=== PATIENT | male | born 1955 | race Caucasian/White ===

== ENCOUNTER 2021-12-06 13:31 | Inpatient (IN) | payer OTHER ==
[~2021-12-06] VITALS: Ht 170.2 cm; Wt 86.8 kg
[2021-12-06 13:36] VITALS: BP_SYST 103
[2021-12-06] MEDS ORDERED: PIPERACILLIN/TAZO 3.38 GM in D5W 50 ML IV ONE (14:45)
[2021-12-06] MEDS ORDERED: PIPERACILLIN/TAZOBACTAM 3.375 GM/VIAL (ZOSYN) IV ONE (14:58)
[2021-12-06 15:19] LABS: BILIRUBIN,URINE NEGATIVE (NEGATIVE); BLOOD, URINE 1+ (NEGATIVE); COLOR,URINE YELLOW (YELLOW); GLUCOSE,URINE NEGATIVE (NEGATIVE); KETONES,URINE NEGATIVE (NEGATIVE); LEUKOCYTE ESTERASE ,URINE 1+ (NEGATIVE); NITRITE, URINE NEGATIVE (NEGATIVE); PROTEIN URINE 1+ (NEGATIVE)
[2021-12-06 15:25] LABS: CLARITY/URINE HAZY (CLEAR)
[2021-12-06 15:26] LABS: BACTERIA,URINE FEW /HPF (None Seen); RBC,URINE 0-3 /HPF (0-3)
[2021-12-06 15:27] LABS: MUCUS,URINE None Seen /LPF (None Seen); YEAST,URINE Few /HPF (None Seen)
[2021-12-06 15:28] LABS: BASOPHILS # (AUTO) 0.1 K/uL (0.0-0.2); BASOPHILS % (AUTO) 0.5 % (0.0-2.0); EOSINOPHILS # (AUTO) 0.1 K/uL (0.0-0.4); EOSINOPHILS % (AUTO) 0.8 % (0.0-4.0); HEMATOCRIT 37.5 % (36-54); LYMPHOCYTES # (AUTO) 1.9 K/uL (1.0-5.5); LYMPHOCYTES % (AUTO) 12.7 % (20.5-51.5); MEAN CORPUSCULAR VOLUME 89 fL (79.0-98.0); MONOCYTES # (AUTO) 1.5 K/uL (0.0-1.0); MONOCYTES % (AUTO) 10.2 % (1.7-9.3); NEUTROPHILS # (AUTO) 11.1 K/uL (1.8-7.7); NEUTROPHILS % (AUTO) 75.8 % (40.0-70.0); PLATELET COUNT (AUTO) 288 K/uL (130-430); RED CELL DISTRIBUTION WIDTH 14.4 % (9.0-15.0); WHITE BLOOD COUNT (AUTO) 14.7 K/uL (4.8-10.8)
[2021-12-06 17:01] LABS: ANION GAP 6 (5-15); CALCIUM 9.2 mg/dL (8.4-11.0); CHLORIDE 99 mmol/L (98-107); CREATININE 0.91 mg/dL (0.55-1.30); GLUCOSE 108 mg/dL (70-99); POTASSIUM 3.8 mmol/L (3.5-5.1); UREA NITROGEN, BLOOD 15 mg/dL (8-21)
[2021-12-06 17:05] LABS: GFR AFRICAN AMERICAN 107 mL/min (>90)
[2021-12-06 17:09] LABS: ALANINE AMINOTRANSFERASE 46 U/L (12-78); ALBUMIN 1.8 g/dL (3.4-4.8); ASPARTATE AMINOTRANSFERASE 30 U/L (10-37); TOTAL BILIRUBIN 1.3 mg/dL (0.0-1.0)
[2021-12-06] MEDS: VANCOMYCIN HCL 1,500 MG in NS 250 ML IV SCH (17:31)
[2021-12-06] MEDS ORDERED: MAGNESIUM SULFATE 50 ML IV PRN (18:00)
[2021-12-06] MEDS ORDERED: DOCUSATE SODIUM 100 MG CAPSULE PO PRN (18:00)
[2021-12-06] MEDS ORDERED: POTASSIUM CHLORIDE 20 MEQ TAB.PRT.SR PO PRN (18:00)
[2021-12-06] MEDS ORDERED: MUPIROCIN 2% TOPICAL OINTMENT 22 GM NS PRN (18:00)
[2021-12-06] MEDS ORDERED: ONDANSETRON HCL 4 MG/2 ML VIAL IVP PRN (18:00)
[2021-12-06] MEDS ORDERED: ACETAMINOPHEN 325 MG TABLET PO PRN (18:00)
[2021-12-06] MEDS ORDERED: MORPHINE 2 MG/ML INJ. SYRINGE IVP PRN ×2 (18:00)
[2021-12-06] MEDS ORDERED: LORazepam 2 MG/ML VIAL IVP PRN (18:00)
[2021-12-06] MEDS ORDERED: APIX2.5T GT (18:29)
[2021-12-06] MEDS ORDERED: SENN8.6T19 GT (18:29)
[2021-12-06] MEDS ORDERED: COLL100 GT (18:29)
[2021-12-06] MEDS ORDERED: VITA250012 GT (18:29)
[2021-12-06] MEDS ORDERED: INSU100V7 SUBCUT (18:29)
[2021-12-06] MEDS ORDERED: LANS30CA53 GT (18:29)
[2021-12-06] MEDS ORDERED: LEVE500T9 GT (18:29)
[2021-12-06] MEDS ORDERED: POLY17PO4 GT (18:29)
[2021-12-06] MEDS ORDERED: IPRA4AER INH (18:29)
[2021-12-06] MEDS ORDERED: ACET325T53 GT (18:29)
[2021-12-06] MEDS ORDERED: IPRA3AMP9 INH (19:53)
[2021-12-06] MEDS ORDERED: LEVE500S9 GT (19:53)
[2021-12-06] MEDS ORDERED: VITD2000 GT (19:53)
[2021-12-06] MEDS ORDERED: PIPERACILLIN/TAZO 3.375/DEX-IS 50 ML IV SCH (22:00)
[2021-12-07] VITALS: BP_SYST 109
[2021-12-07] MEDS ORDERED: ZOSYN (PIPERACILLIN/TAZO) 3.375 GM in DEX-ISO (50ml) IV SCH
[2021-12-07] MEDS: ZOSYN (PIPERACILLIN/TAZO) 3.375 GM in DEX-ISO (50ml) IV SCH ×4 (01:18→20:24)
[2021-12-07 07:00] VITALS: BP_SYST 151
[2021-12-07 08:00] VITALS: BP_SYST 151
[2021-12-07 09:39] LABS: BASOPHILS # (AUTO) 0.1 K/uL (0.0-0.2); BASOPHILS % (AUTO) 0.8 % (0.0-2.0); EOSINOPHILS # (AUTO) 0.1 K/uL (0.0-0.4); EOSINOPHILS % (AUTO) 1.2 % (0.0-4.0); LYMPHOCYTES # (AUTO) 1.9 K/uL (1.0-5.5); LYMPHOCYTES % (AUTO) 16.2 % (20.5-51.5); MEAN CORPUSCULAR VOLUME 90 fL (79.0-98.0); MONOCYTES # (AUTO) 1.4 K/uL (0.0-1.0); MONOCYTES % (AUTO) 12.2 % (1.7-9.3); NEUTROPHILS # (AUTO) 8.1 K/uL (1.8-7.7); NEUTROPHILS % (AUTO) 69.6 % (40.0-70.0); PLATELET COUNT (AUTO) 295 K/uL (130-430); RED BLOOD CELL COUNT(AUTO) 4.25 MIL/uL (4.2-6.2); RED CELL DISTRIBUTION WIDTH 14.3 % (9.0-15.0); WHITE BLOOD COUNT (AUTO) 11.6 K/uL (4.8-10.8)
[2021-12-07 09:53] LABS: CALCIUM 9.2 mg/dL (8.4-11.0); CREATININE 0.85 mg/dL (0.55-1.30); POTASSIUM 3.7 mmol/L (3.5-5.1)
[2021-12-07 11:42] VITALS: BP_SYST 136
[2021-12-07] MEDS ORDERED: FUROSEMIDE 40 MG/4 ML VIAL IVP ONE (12:30)
[2021-12-07] MEDS ORDERED: INSULIN LISPRO SLIDING SCALE 100 UNITS/ML, 3 ML VIAL (humaLOG) SUBCUT PRN (14:00)
[2021-12-07] MEDS ORDERED: DEXTROSE 50% JECT 50 ML DISP.SYRIN IVP PRN (14:00)
[2021-12-07 15:23] VITALS: BP_SYST 141
[2021-12-07] MEDS: VANCOMYCIN HCL 1,500 MG in NS 250 ML IV SCH (18:20)
[2021-12-07 20:20] VITALS: BP_SYST 120
[2021-12-07] MEDS: SENNOSIDES 8.6 MG TABLET GT SCH (20:50)
[2021-12-07] MEDS: levETIRAcetam 500 MG in NS 100 ML IV SCH (20:53)
[2021-12-08 00:15] VITALS: BP_SYST 150
[2021-12-08] MEDS: ZOSYN (PIPERACILLIN/TAZO) 3.375 GM in DEX-ISO (50ml) IV SCH ×2 (01:32→06:12)
[2021-12-08 07:00] VITALS: BP_SYST 146
[2021-12-08 07:56] LABS: BASOPHILS % (AUTO) 0.5 % (0.0-2.0); EOSINOPHILS # (AUTO) 0.1 K/uL (0.0-0.4); EOSINOPHILS % (AUTO) 1.1 % (0.0-4.0); HEMATOCRIT 39.7 % (36-54); LYMPHOCYTES # (AUTO) 2.1 K/uL (1.0-5.5); LYMPHOCYTES % (AUTO) 25.4 % (20.5-51.5); MEAN CORPUSCULAR VOLUME 90 fL (79.0-98.0); MONOCYTES % (AUTO) 11.8 % (1.7-9.3); NEUTROPHILS # (AUTO) 5.1 K/uL (1.8-7.7); NEUTROPHILS % (AUTO) 61.2 % (40.0-70.0); PLATELET COUNT (AUTO) 321 K/uL (130-430); RED BLOOD CELL COUNT(AUTO) 4.42 MIL/uL (4.2-6.2); RED CELL DISTRIBUTION WIDTH 14.5 % (9.0-15.0); WHITE BLOOD COUNT (AUTO) 8.3 K/uL (4.8-10.8)
[2021-12-08 08:00] VITALS: BP_SYST 146
[2021-12-08 08:24] LABS: CALCIUM 9.6 mg/dL (8.4-11.0); CREATININE 1.17 mg/dL (0.55-1.30); POTASSIUM 3.3 mmol/L (3.5-5.1)
[2021-12-08] MEDS: POLYETHYLENE GLYCOL 3350, 17 GM/ POWD.PACK GT SCH (08:40)
[2021-12-08] MEDS: FUROSEMIDE 40 MG/4 ML VIAL IVP SCH (08:40)
[2021-12-08] MEDS: levETIRAcetam 500 MG in NS 100 ML IV SCH ×2 (11:27→20:58)
[2021-12-08 12:00] VITALS: BP_SYST 118
[2021-12-08 16:00] VITALS: BP_SYST 130
[2021-12-08] MEDS: VANCOMYCIN HCL 1,500 MG in NS 250 ML IV SCH (17:49)
[2021-12-08 20:00] VITALS: BP_SYST 110
[2021-12-08] MEDS: SENNOSIDES 8.6 MG TABLET GT SCH (20:57)
[2021-12-09] VITALS: BP_SYST 106
[2021-12-09 07:28] LABS: CALCIUM 9.2 mg/dL (8.4-11.0); CREATININE 0.99 mg/dL (0.55-1.30); POTASSIUM 3.2 mmol/L (3.5-5.1)
[2021-12-09 07:34] LABS: BASOPHILS # (AUTO) 0.1 K/uL (0.0-0.2); BASOPHILS % (AUTO) 0.8 % (0.0-2.0); EOSINOPHILS # (AUTO) 0.1 K/uL (0.0-0.4); EOSINOPHILS % (AUTO) 1.4 % (0.0-4.0); HEMATOCRIT 37.6 % (36-54); LYMPHOCYTES # (AUTO) 1.6 K/uL (1.0-5.5); LYMPHOCYTES % (AUTO) 21.6 % (20.5-51.5); MEAN CORPUSCULAR VOLUME 90 fL (79.0-98.0); MONOCYTES # (AUTO) 0.9 K/uL (0.0-1.0); MONOCYTES % (AUTO) 11.7 % (1.7-9.3); NEUTROPHILS # (AUTO) 4.9 K/uL (1.8-7.7); NEUTROPHILS % (AUTO) 64.5 % (40.0-70.0); PLATELET COUNT (AUTO) 340 K/uL (130-430); RED BLOOD CELL COUNT(AUTO) 4.19 MIL/uL (4.2-6.2); RED CELL DISTRIBUTION WIDTH 14.3 % (9.0-15.0); WHITE BLOOD COUNT (AUTO) 7.5 K/uL (4.8-10.8)
[2021-12-09] MEDS: POLYETHYLENE GLYCOL 3350, 17 GM/ POWD.PACK GT SCH (09:01)
[2021-12-09] MEDS: FUROSEMIDE 40 MG/4 ML VIAL IVP SCH (09:10)
[2021-12-09] MEDS: levETIRAcetam 500 MG in NS 100 ML IV SCH ×2 (09:12→22:20)
[2021-12-09 12:09] VITALS: BP_SYST 110
[2021-12-09 16:46] VITALS: BP_SYST 113
[2021-12-09] MEDS: VANCOMYCIN HCL 1,500 MG in NS 250 ML IV SCH (17:52)
[2021-12-09 20:00] VITALS: BP_SYST 127
[2021-12-09] MEDS: SENNOSIDES 8.6 MG TABLET GT SCH (22:20)
[2021-12-10] VITALS (7 sets, daily range): BP systolic 106–149
[2021-12-10 08:27] LABS: BASOPHILS # (AUTO) 0.1 K/uL (0.0-0.2); BASOPHILS % (AUTO) 0.9 % (0.0-2.0); EOSINOPHILS # (AUTO) 0.1 K/uL (0.0-0.4); LYMPHOCYTES # (AUTO) 1.3 K/uL (1.0-5.5); LYMPHOCYTES % (AUTO) 24.5 % (20.5-51.5); MEAN CORPUSCULAR VOLUME 91 fL (79.0-98.0); MONOCYTES # (AUTO) 0.8 K/uL (0.0-1.0); MONOCYTES % (AUTO) 14.5 % (1.7-9.3); NEUTROPHILS # (AUTO) 3.1 K/uL (1.8-7.7); NEUTROPHILS % (AUTO) 58.1 % (40.0-70.0); PLATELET COUNT (AUTO) 297 K/uL (130-430); RED BLOOD CELL COUNT(AUTO) 4.06 MIL/uL (4.2-6.2); RED CELL DISTRIBUTION WIDTH 14.1 % (9.0-15.0); WHITE BLOOD COUNT (AUTO) 5.4 K/uL (4.8-10.8)
[2021-12-10] MEDS: FUROSEMIDE 40 MG/4 ML VIAL IVP SCH (08:32)
[2021-12-10] MEDS: levETIRAcetam 500 MG in NS 100 ML IV SCH ×2 (08:33→20:23)
[2021-12-10] MEDS: POLYETHYLENE GLYCOL 3350, 17 GM/ POWD.PACK GT SCH (08:33)
[2021-12-10 08:38] LABS: CALCIUM 9.2 mg/dL (8.4-11.0); CREATININE 1.03 mg/dL (0.55-1.30); POTASSIUM 3.3 mmol/L (3.5-5.1)
[2021-12-10] MEDS ORDERED: LEVO-62 PO (10:31)
[2021-12-10] MEDS: VANCOMYCIN HCL 1,500 MG in NS 250 ML IV SCH (17:18)
[2021-12-10] MEDS: SENNOSIDES 8.6 MG TABLET GT SCH (20:22)
[2021-12-11] VITALS: BP_SYST 135
[2021-12-11 08:00] VITALS: BP_SYST 124
[2021-12-11] MEDS: FUROSEMIDE 40 MG/4 ML VIAL IVP SCH (08:46)
[2021-12-11] MEDS: POLYETHYLENE GLYCOL 3350, 17 GM/ POWD.PACK GT SCH (08:47)
[2021-12-11 09:22] LABS: CALCIUM 9.5 mg/dL (8.4-11.0); CREATININE 0.92 mg/dL (0.55-1.30); POTASSIUM 3.2 mmol/L (3.5-5.1)
[2021-12-11 11:24] VITALS: BP_SYST 119
[2021-12-11] MEDS: levETIRAcetam 500 MG in NS 100 ML IV SCH ×2 (11:26→21:45)
[2021-12-11 12:54] LABS: BASOPHILS # (AUTO) 0.1 K/uL (0.0-0.2); BASOPHILS % (AUTO) 1.2 % (0.0-2.0); EOSINOPHILS # (AUTO) 0.2 K/uL (0.0-0.4); EOSINOPHILS % (AUTO) 3.7 % (0.0-4.0); HEMATOCRIT 38.6 % (36-54); LYMPHOCYTES # (AUTO) 1.3 K/uL (1.0-5.5); LYMPHOCYTES % (AUTO) 23.6 % (20.5-51.5); MONOCYTES # (AUTO) 0.6 K/uL (0.0-1.0); MONOCYTES % (AUTO) 10.3 % (1.7-9.3); NEUTROPHILS # (AUTO) 3.5 K/uL (1.8-7.7); NEUTROPHILS % (AUTO) 61.2 % (40.0-70.0); PLATELET COUNT (AUTO) 269 K/uL (130-430); RED BLOOD CELL COUNT(AUTO) 4.32 MIL/uL (4.2-6.2); RED CELL DISTRIBUTION WIDTH 14.3 % (9.0-15.0); WHITE BLOOD COUNT (AUTO) 5.7 K/uL (4.8-10.8)
[2021-12-11 13:12] LABS: MEAN CORPUSCULAR VOLUME 89 fL (79.0-98.0)
[2021-12-11 15:34] VITALS: BP_SYST 115
[2021-12-11] MEDS: VANCOMYCIN HCL 1,500 MG in NS 250 ML IV SCH (17:54)
[2021-12-11 20:00] VITALS: BP_SYST 113
[2021-12-11] MEDS: SENNOSIDES 8.6 MG TABLET GT SCH (21:45)
[2021-12-12] VITALS: BP_SYST 135; BP_SYST 141
[2021-12-12 08:00] VITALS: BP_SYST 133
[2021-12-12] MEDS: levETIRAcetam 500 MG in NS 100 ML IV SCH ×2 (09:00→21:00)
[2021-12-12] MEDS: FUROSEMIDE 40 MG/4 ML VIAL IVP SCH (09:00)
[2021-12-12] MEDS: POLYETHYLENE GLYCOL 3350, 17 GM/ POWD.PACK GT SCH (09:00)
[2021-12-12 11:38] VITALS: BP_SYST 116
[2021-12-12 15:35] VITALS: BP_SYST 120
[2021-12-12] MEDS: VANCOMYCIN HCL 1,500 MG in NS 250 ML IV SCH (17:44)
[2021-12-12 21:00] VITALS: BP_SYST 131
[2021-12-12] MEDS: SENNOSIDES 8.6 MG TABLET GT SCH (23:20)
[2021-12-13 01:00] VITALS: BP_SYST 129
[2021-12-13 08:00] VITALS: BP_SYST 136
[2021-12-13] MEDS: POLYETHYLENE GLYCOL 3350, 17 GM/ POWD.PACK GT SCH (09:00)
[2021-12-13] MEDS: FUROSEMIDE 40 MG/4 ML VIAL IVP SCH (09:00)
[2021-12-13] MEDS: levETIRAcetam 500 MG in NS 100 ML IV SCH (09:00)
[2021-12-13 12:27] VITALS: BP_SYST 132
[2021-12-13 15:06] VITALS: BP_SYST 132
== END 2021-12-13 19:30 | DRG 501 ==
LOC: SED 13:31 → STU 17:54 → SMU 12-11 11:14
PROVIDERS: ADMIT Family Medicine; ATTEND Family Medicine
DX: N49.2 Inflammatory disorders of scrotum (principal); E43 Unspecified severe protein-calorie malnutrition; G40.909 Epilepsy, unspecified, not intractable, without status epilepticus; N39.0 Urinary tract infection, site not specified; E11.9 Type 2 diabetes mellitus without complications; N44.00 Torsion of testis, unspecified; Z20.822 Contact with and (suspected) exposure to COVID-19; Z86.11 Personal history of tuberculosis; Z68.30 Body mass index [BMI] 30.0-30.9, adult
CPT/HCPCS: 36415; 76376; 76870-TC; 80048; 80053; 80202; 81000; 82962; 83605; 83735; 84484; 85025; 87040; 87081; 87086; 93005; 96365; 99285; G0378; J0696; J1940; J1953; J2270; J2543; J3370; J7050; J7060